=== PATIENT | female | born 1965 | race Two or more races ===

== ENCOUNTER 2019-04-02 12:17 | Emergency (ER) | payer OTHER ==
[2019-04-02 12:29] VITALS: BP 121/88; PULSE 112; TEMP 98.6; BMI 28.7
--- NOTE | 2019-04-02 12:49 | PDOC ---
History of Present Illness - General Chief Complaint: Respiratory Stated Complaint: COLD SYMPTOMS Time Seen by Provider: 04/02/19 12:29 History Source: Patient Exam Limitations: No Limitations - History of Present Illness Initial Comments: 04/02/19 12:54 Here with complaints of fevers Tmax 101.7 yesterday, moist cough with pleuritic chest pain, bringing up thick white yellow phlegm. Has tried multiple over-the- counter medications and homeopathic treatments with minimal resolved. Smokes Timing/Duration: reports: getting worse Severity: reports: mild, moderate Associated Symptoms: reports: chest pain/soreness, cough, fever/chills, muscle aches, nasal congestion, nasal drainage, sore throat Past History - Travel Traveled outside of the country in the last 30 days: No Close contact w/someone who was outside of country & ill: No - Past Medical History Allergies/Adverse Reactions: Allergies Allergy/AdvReac Type Severity Reaction Status Date / Time Sulfa (Sulfonamide Allergy Severe Swelling Verified 04/02/19 12:24 Antibiotics) [Sulfa(Sulfonamide Antibiotics)] Penicillins Allergy Intermediate Verified 04/02/19 12:24 Home Medications: Ambulatory Orders Naproxen [Naprosyn -] 500 mg PO BID PRN #14 tablet 03/04/15 Azithromycin [Zithromax -] 250 mg PO UTDICT #6 tab 04/02/19 Asthma: Yes COPD: No - Suicide/Smoking/Psychosocial Hx Smoking Status: No Smoking History: Current every day smoker Have you smoked in the past 12 months: Yes Number of Cigarettes Smoked Daily: 4 Information on smoking cessation initiated: No Review of Systems - Review of Systems Able to Perform ROS?: Yes Is the patient limited Sami proficient: Yes Constitutional: Yes: Symptoms Reported, See HPI, Chills, Fever, Loss of Appetite HEENTM: Yes: Symptoms Reported, See HPI, Nose Congestion, Throat Pain, Difficulty Swallowing Respiratory: Yes: Symptoms reported, See HPI, Cough, Wheezing Musculoskeletal: Yes: Symptoms Reported, See HPI, Back Pain Integumentary: No: Symptoms Reported Neurological: Yes: Symptoms reported, See HPI, Headache All Other Systems: Reviewed and Negative *Physical Exam - Vital Signs Last Vital Signs Temp Pulse Resp BP Pulse Ox 98.6 F 112 H 20 121/88 99 04/02/19 12:21 04/02/19 12:21 04/02/19 12:21 04/02/19 12:21 04/02/19 12:21 - Physical Exam General Appearance: Yes: Nourished, Appropriately Dressed, Apparent Distress, Mild Distress HEENT: positive: BRIDGETT, TMs Normal, Tonsillar Erythema, Nasal Congestion, Rhinorrhea. negative: Pharynx Normal Neck: positive: Supple, Lymphadenopathy (R), Lymphadenopathy (L). negative: Tender Respiratory/Chest: positive: Lungs Clear (coarse but clear), Rhonchi. 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 Is a smoker therefore will treat with azithromycin *DC/Admit/Observation/Transfer Diagnosis at time of Disposition: Bronchitis - Discharge Dispostion Disposition: HOME Condition at time of disposition: Stable Decision to Admit order: No - Prescriptions Prescriptions: Azithromycin [Zithromax -] 250 mg PO UTDICT #6 tab - Referrals Referrals: Herb Woodward MD [Primary Care Provider] - - Patient Instructions Printed Discharge Instructions: DI for Acute Bronchitis Additional Instructions: Rest, drink lots of fluids: Teas, water, soups, Pedialyte Saltwater gargles Steamy showers/seem to face break up mucus Avoid contact with others until fevers and cough resolved Lots of handwashing and good hygiene Continue [id number] medications for symptomatic relief Tylenol or Motrin for fever and pain Continue azithromycin until completed Followup with private physician in one to 2 days as needed Return to emergency department for worsened symptoms, fevers, dehydration - Post Discharge Activity Forms/Work/School Notes: Back to Work
== END 2019-04-02 12:53 | disposition home or self-care (01) ==
LOC: JERFT 12:17 → JER 12:17 → JERFT 12:53
DX: J40 Bronchitis, not specified as acute or chronic (principal)
CPT/HCPCS: 99281-25

== ENCOUNTER 2021-07-31 15:56 | Emergency (ER) | payer OTHER ==
[2021-07-31 16:16] VITALS: BP 128/79; PULSE 90; TEMP 97.8; BMI 29.7
[2021-07-31] MEDS ORDERED: SODIUM CHLORIDE 1,000 ML IV STA (17:03)
[2021-07-31] MEDS ORDERED: KETOROLAC TROMETHAMINE 30 MG/1 ML VIAL IVPUSH ONE (17:03)
[2021-07-31] MEDS ORDERED: KETOROLAC TROMETHAMINE 30 MG/1 ML VIAL ONE (17:12)
[2021-07-31 18:24] LABS: BASO % 0.4 % (0-2.0); EOS % 2.1 % (0-4.5); HEMATOCRIT 42.4 % (32.4-45.2); HEMOGLOBIN 14.4 GM/dL (10.7-15.3); LYMPH % 39.7 % (8-40); MCH 30.5 pg (25.7-33.7); MEAN CELL VOLUME 89.5 fl (80-96); MEAN PLT VOLUME 8.6 fl (7.5-11.1); MONO % 5.8 % (3.8-10.2); PLATELET COUNT 332 10^3/uL (134-434); RBC 4.74 M/mm3 (3.60-5.2); RDW 14.3 % (11.6-15.6); WHITE BLOOD COUNT 10.6 K/mm3 (4.0-10.0)
[2021-07-31 18:31] LABS: EPI CELLS 4 /uL (0-25.1); HYALINE CASTS 4 /uL (0-3.1); PH,URINE 5.5 (5.0-8.0); URINE APPEARANCE CLEAR; URINE BACTERIA 428 /uL (0-1359); URINE BILIRUBIN NEGATIVE (NEGATIVE); URINE COLOR YELLOW; URINE GLUCOSE (UA) NEGATIVE (NEGATIVE); URINE KETONE NEGATIVE (NEGATIVE); URINE LEUK ESTERASE 2+ (NEGATIVE); URINE NITRITE NEGATIVE (NEGATIVE); URINE PROTEIN TRACE (NEGATIVE); URINE RBC 245 /uL (0-23.9); URINE UROBILINOGEN 0.2 mg/dL (0.2-1.0); URINE WBC 332 /uL (0-25.8)
[2021-07-31 18:34] LABS: CALCIUM 9.5 mg/dL (8.5-10.1)
[2021-07-31 18:38] LABS: CREATININE 0.8 mg/dL (0.55-1.3)
[2021-07-31 18:39] LABS: BILIRUBIN,TOTAL 0.2 mg/dL (0.2-1)
[2021-07-31 18:40] LABS: TOT PROT 6.9 g/dl (6.4-8.2)
[2021-07-31] MEDS ORDERED: CEFTRIAXONE 1,000 MG in DEXTROSE 5%-WATER - 50 ML IVPB ONE (19:03)
[2021-07-31] MEDS ORDERED: CEFTRIAXONE 1 GM/50 ML BAG ONE (19:11)
== END 2021-07-31 20:43 | disposition home or self-care (01) ==
LOC: JER 15:56
PROC: 3E03329 Introduction of Other Anti-infective into Peripheral Vein, Percutaneous Approach (ICD-10-PCS; principal; 2021-07-31)
PROC: 3E0333Z Introduction of Anti-inflammatory into Peripheral Vein, Percutaneous Approach (ICD-10-PCS; 2021-07-31)
PROC: 3E0337Z Introduction of Electrolytic and Water Balance Substance into Peripheral Vein, Percutaneous Approach (ICD-10-PCS; 2021-07-31)
DX: N39.0 Urinary tract infection, site not specified (principal)
CPT/HCPCS: 36415; 74176-TC; 80053; 81003; 85025; 87086; 99285-25

== ENCOUNTER 2023-06-22 09:33 | Emergency (ER) | payer OTHER ==
[2023-06-22 09:53] VITALS: BP 153/98; PULSE 71; RESP 18; TEMP 98; BMI 28.7
[2023-06-22] MEDS ORDERED: predniSONE 20 MG TABLET (UD) PO ONE (10:10)
[2023-06-22] MEDS ORDERED: predniSONE 20 MG TABLET (UD) ONE (10:34)
[2023-06-22] MEDS ORDERED: MAG HYDROX/AL HYDROX/SIMETH 30 ML UNIT-DOSE CUP PO ONE (10:44)
[2023-06-22] MEDS: ALBUTEROL SO4 2.5/IPRATROPIUM 0.5 INH SOL 3 ML VIAL.NEB. NEB SCH ×2 (11:16→11:17)
[2023-06-22] MEDS ORDERED: MAG HYDROX/AL HYDROX/SIMETH 30 ML UNIT-DOSE CUP ONE (11:19)
== END 2023-06-22 11:45 | disposition home or self-care (01) ==
LOC: JERFT 09:33 → JER 09:33 → JERFT 11:45
PROC: 3E0F7GC Introduction of Other Therapeutic Substance into Respiratory Tract, Via Natural or Artificial Opening (ICD-10-PCS; principal; 2023-06-22)
DX: R07.89 Other chest pain (principal); R06.2 Wheezing; R05.9 Cough, unspecified; R09.89 Other specified symptoms and signs involving the circulatory and respiratory systems; R06.02 Shortness of breath; J34.89 Other specified disorders of nose and nasal sinuses; J98.8 Other specified respiratory disorders; Z20.822 Contact with and (suspected) exposure to COVID-19
CPT/HCPCS: 0241U-QW; 71046-TC-FY; 93005; 93010; 99285-25